=== PATIENT | male | born 1990 | race African-American/Black ===

== ENCOUNTER 2019-10-12 17:47 | Emergency (ER) | payer OTHER ==
[~2019-10-12] VITALS: Ht 172.7 cm; Wt 91.0 kg
[2019-10-12] MEDS ORDERED: ACETAMINOPHEN 325MG TABLET PO ONE (18:45)
[2019-10-12 19:34] VITALS: BP 120/75
== END 2019-10-12 19:49 | disposition home or self-care (01) ==
LOC: ER 17:47
DX: S39.012A Strain of muscle, fascia and tendon of lower back, initial encounter (principal); Z85.9 Personal history of malignant neoplasm, unspecified; Y35.893A Legal intervention involving other specified means, suspect injured, initial encounter; Y93.89 Activity, other specified; Y92.89 Other specified places as the place of occurrence of the external cause
CPT/HCPCS: 72100; 72170; 99284